=== PATIENT | female | born 1975 ===

== ENCOUNTER 2017-07-12 10:39 | Emergency (ER) | payer OTHER ==
[2017-07-12 11:01] VITALS: RESP 18
[2017-07-12] MEDS ORDERED: Sodium Chloride 0.9% 1,000 ML IV STA (12:15)
[2017-07-12 14:38] VITALS: TEMP 99.2
--- NOTE | 2017-07-12 15:03 | ED PDOC ---
Arrival/HPI - General Chief Complaint: GI Problem Time Seen by Provider: 07/12/17 11:18 Historian: Patient - History of Present Illness Narrative History of Present Illness (Text): 07/12/17 15:08 Ciara Hernandez is a 42 year old female who presents to the emergency department complaining of nausea, general malaise, headache, eye pain, ear pain , fevers, coughs, nausea, and vomiting for the past 24 hours. Patient has no other complaints at this time. Time/Duration: 24 hours Symptom Onset: Gradual Symptom Course: Unchanged Activities at Onset: Rest Context: Home Past Medical History - Provider Review Nursing Documentation Reviewed: Yes - Infectious Disease Hx of Infectious Diseases: None - Endocrine/Metabolic Hx Hypothyroidism: Yes - Psychiatric Hx Substance Use: No Family/Social History - Physician Review Nursing Documentation Reviewed: Yes Family/Social History: No Known Family HX Smoking Status: Never Smoked Hx Alcohol Use: No Hx Substance Use: No Allergies/Home Meds Allergies/Adverse Reactions: Allergies No Known Allergies Allergy (Verified 07/12/17 11:01) Home Medications: Home Meds Medication Instructions Recorded Confirmed Levothyroxine [Synthroid] 100 mcg PO DAILY 07/12/17 07/12/17 Review of Systems - Physician Review All systems were reviewed & negative as marked: Yes - Review of Systems Constitutional: Fevers, Other (general malaise) Eyes: Eye Pain. absent: Vision Changes ENT: Other (ear pain). absent: Hearing Changes Respiratory: Cough Cardiovascular: absent: Chest Pain Gastrointestinal: Nausea, Vomiting Genitourinary Female: absent: Dysuria, Frequency Musculoskeletal: absent: Arthralgias Skin: absent: Rash, Pruritis Neurological: Headache Endocrine: absent: Diaphoresis, Polyuria Hemo/Lymphatic: absent: Adenopathy Psychiatric: absent: Anxiety, Depression Physical Exam Vital Signs Reviewed: Yes Vital Signs Temp Pulse Resp BP Pulse Ox 07/12/17 14:00 99.2 F 97 H 18 119/76 99 07/12/17 10:58 99 F 104 H 18 118/82 99 Temperature: Afebrile Blood Pressure: Normal Pulse: Tachycardic Appearance: Positive for: Uncomfortable Pain Distress: None Mental Status: Positive for: Alert and Oriented X 3 - Systems Exam Head: Present: Atraumatic, Normocephalic Pupils: Present: PERRL Extroacular Muscles: Present: EOMI Conjunctiva: Present: Normal Ears: Present: Normal Canal, Other (Superficial abrasion to outside of right ear ; no signs of infection) Mouth: Present: Moist Mucous Membranes (pink) Neck: Present: Normal Range of Motion Respiratory/Chest: Present: Clear to Auscultation, Good Air Exchange. No: Respiratory Distress, Accessory Muscle Use Cardiovascular: Present: Tachycardic (mild) Abdomen: Present: Normal Bowel Sounds. No: Tenderness, Distention, Peritoneal Signs Back: Present: Normal Inspection Upper Extremity: Present: Normal Inspection. No: Cyanosis, Edema Lower Extremity: Present: Normal Inspection. No: Edema Neurological: Present: GCS=15, CN II-XII Intact, Speech Normal Skin: Present: Warm, Dry, Normal Color. No: Rashes Psychiatric: Present: Alert, Oriented x 3, Normal Insight, Normal Concentration Medical Decision Making ED Course and Treatment: 07/12/17 15:15 Impression: 42 year old female complaining of nausea, general malaise, headache, eye pain, ear pain, fevers, coughs, nausea, and vomiting for the past 24 hours. Plan: -- Toradol, Zofran, and IV fluids -- Reassess and disposition Progress Notes: 07/12/17 15:16 Patient feels better after IV Fluids. Flu test is positive. - Lab Interpretations Lab Results: Lab Results 07/12/17 13:20: Influenza Typ A,B (EIA) Pos for influenza b H I have reviewed the lab results: Yes - Medication Orders Current Medication Orders: Discontinued Medications Sodium Chloride (Sodium Chloride 0.9%) 1,000 mls @ 999 mls/hr IV .Q1H1M STA Stop: 07/12/17 13:15 Last Admin: 07/12/17 12:39 Dose: 999 mls/hr eMAR Start Stop Document 07/12/17 12:39 YASMINE (Rec: 07/12/17 12:40 YASMINE [id number]) Intravenous Solution Start Date 07/12/17 Start Time 12:39 End Date 07/12/17 End time 13:39 Total Infusion Time 60 Ketorolac Tromethamine (Toradol) 30 mg IVP STAT STA Stop: 07/12/17 12:46 Last Admin: 07/12/17 13:20 Dose: 30 mg MAR Pain Assessment Document 07/12/17 13:20 YASMINE (Rec: 07/12/17 13:20 YASMINE [id number]) Pain Reassessment Is this a pain reassessment? No Sleep Is patient sleeping during reassessment? No Presence of Pain Presence of Pain Yes IVP Administration Document 07/12/17 13:20 YASMINE (Rec: 07/12/17 13:20 YASMINE [id number]) Charges for Administration # of IVP Administrations 1 Ondansetron HCl (Zofran Inj) 4 mg IVP STAT STA Stop: 07/12/17 12:15 Last Admin: 07/12/17 12:40 Dose: 4 mg IVP Administration Document 07/12/17 12:40 YASMINE (Rec: 07/12/17 12:40 [facility] [id number]) Charges for Administration # of IVP Administrations 1 - Scribe Statement The provider has reviewed the documentation as recorded by the Scribe Winnie Calloway Provider Scribe Attestation: All medical record entries made by the Scribe were at my direction and personally dictated by me. I have reviewed the chart and agree that the record accurately reflects my personal performance of the history, physical exam, medical decision making, and the department course for this patient. I have also personally directed, reviewed, and agree with the discharge instructions and disposition. Disposition/Present on Arrival - Present on Arrival Any Indicators Present on Arrival: No History of DVT/PE: No History of Uncontrolled Diabetes: No Urinary Catheter: No History of Decub. Ulcer: No History Surgical Site Infection Following: None - Disposition Have Diagnosis and Disposition been Completed?: Yes Diagnosis: Influenza B Disposition: HOME/ ROUTINE Disposition Time: 15:00 Patient Plan: Discharge Patient Problems: Current Active Problems Problem Status Onset Influenza B Acute Prescriptions: Oseltamivir Phosphate [Tamiflu] 75 mg PO BID #10 capsule Referrals: PCP,NO [Primary Care Provider] - Follow up with primary Forms: [employer] (Romanian)
[2017-07-12 15:19] VITALS: BP 120/70; PULSE 88; O2SAT 98
== END 2017-07-12 15:38 | disposition home or self-care (01) ==
LOC: ED 10:39 → MERGE 10:39 → ED 15:38
DX: J10.1 Influenza due to other identified influenza virus with other respiratory manifestations (principal); E03.9 Hypothyroidism, unspecified
CPT/HCPCS: 87804; 96361; 96374; 96375; 99283; J1885; J2405; J7040